=== PATIENT | male | born 1960 | race Two or more races ===

== ENCOUNTER 2024-11-11 19:34 | Emergency (ER) | payer BC, MEDICAID ==
[~2024-11-11] VITALS: Ht 170.2 cm; Wt 72.6 kg
[2024-11-11] MEDS ORDERED: NEOMY/BACITRA/POLYMYXIN B OINT UD PACKET TP ONE (23:12)
[2024-11-11] MEDS: NEOMY/BACITRA/POLYMYXIN B OINT UD PACKET TP ONE (23:23)
[2024-11-11 23:25] VITALS: BP 137/100; O2SAT 97
[2024-11-11] MEDS ORDERED: HYDR25CA PO (23:29)
[2024-11-11] MEDS ORDERED: HYDR-4174 TP (23:29)
== END 2024-11-11 23:36 | disposition home or self-care (01) ==
LOC: ER 19:39
DX: I87.2 Venous insufficiency (chronic) (peripheral) (principal); R21 Rash and other nonspecific skin eruption; F41.9 Anxiety disorder, unspecified; G47.00 Insomnia, unspecified; I10 Essential (primary) hypertension; Z59.00 Homelessness unspecified; Z88.6 Allergy status to analgesic agent; Z87.448 Personal history of other diseases of urinary system; Z87.438 Personal history of other diseases of male genital organs
CPT/HCPCS: A4606; A4663